=== PATIENT | female | born 1990 | race Hispanic/Latino ===

== ENCOUNTER 2017-12-24 11:12 | Emergency (ER) | payer MEDICAID ==
[~2017-12-24 11:12] MED LIST: ASEN5TAB8 SL; CLON1TAB4 PO; FLUO20TA29 PO; OXCA600T10 PO; RISP0.5T61 PO
[2017-12-24] MEDS ORDERED: ACETAMINOPHEN 325 MG TAB ONE (11:58)
[2017-12-24 12:31] LABS: RAPID GROUP A STREP NEGATIVE (NEGATIVE)
[2017-12-24 13:01] LABS: APPEARANCE,URINE Clear (CLEAR); BILIRUBIN,URINE Negative (NEGATIVE); COLOR,URINE Yellow (YELLOW); GLUCOSE, URINE (UA) Negative (NEGATIVE); KETONES,URINE Negative (NEGATIVE); LEUKOCYTE ESTERASE ,URINE Negative (NEGATIVE); NITRATE,URINE Negative (NEGATIVE); OCCULT BLOOD,URINE Negative (NEGATIVE); PH,URINE 8.5 (5.0-8.0); PROTEIN,URINE Negative (NEGATIVE)
[2017-12-24 13:02] LABS: HCG,QUAL RESULT NEGATIVE (NEGATIVE)
== END 2017-12-24 14:17 | disposition home or self-care (01) ==
LOC: EDH 11:12
DX: J10.1 Influenza due to other identified influenza virus with other respiratory manifestations (principal); F31.9 Bipolar disorder, unspecified; Z98.890 Other specified postprocedural states
CPT/HCPCS: 81003; 81025; 87804; 87880